=== PATIENT | male | born 1950 | race Caucasian/White ===

== ENCOUNTER 2017-02-10 12:03 | Observation (INO) | payer OTHER ==
--- NOTE | 2017-02-10 12:25 | CPEKG ---
Heart Rate: 63 RR Interval: 952 P-R Interval: 140 QRSD Interval: 82 QT Interval: 400 QTC Interval: 410 P Mobile: 66 QRS Mobile: 34 T Wave Mobile: 36 EKG Severity - NORMAL ECG - EKG Impression: SINUS RHYTHM Electronically Signed By: Melvin Gonzalez 10-Feb-2017 15:37:49
--- NOTE | 2017-02-10 12:25 | EDPHY ---
H & P Time Seen by Provider: 02/10/17 12:24 HPI/ROS: Chief complaint. Chest pain HPI. 66-year-old male presents emergency department with sharp right-sided chest discomfort that began suddenly at about 10:15 this morning. He and his have just returned from a hike. He felt well during the hike during the hike that they normally do. He has a significant history of GERD but this feels different. He describes as sharp without radiation. Slight shortness of breath. Symptoms are worse with walking. No fever cough. No unusual leg pain or swelling. He does have a history of previous PE after knee surgery. There is also family history of coronary artery disease in his father. The patient had an angiogram of coronary arteries 10 years ago which did shows some plaque ROS Constitutional. no fever/chills, no weakness Eyes. no problems with vision ENT. no sore throat, no nasal drainage Cardiovascular. Sharp right-sided chest pain Respiratory. Slight shortness of breath Abdominal. no abdominal pain, no nausea/vomiting, no diarrhea . no problems urinating MS. no calf pain/swelling, no neck/back pain, no joint pain Skin. no rash Lymph. no swollen glands Neuro. no headache, no dizziness, no difficulty walking or with speech Past Medical/Surgical History: Non-Hodgkin's lymphoma in remission, asthma, GERD, hypertension, diabetes, gout , hypothyroid Social History: , nonsmoker, no alcohol Smoking Status: Former smoker Physical Exam: General Appearance: Alert pleasant well-developed male mild distress vital signs are stable Eyes: Pupils equal and round no pallor or injection. ENT, Mouth: Mucous membranes are moist. Respiratory: There are no retractions, lungs are clear to auscultation. Cardiovascular: Regular rate and rhythm. Gastrointestinal: Abdomen is soft and nontender, no masses, bowel sounds normal. Neurological: Awake and alert, sensory and motor exams grossly normal. Skin: Warm and dry, no rashes. Musculoskeletal: Neck is supple nontender. Extremities symmetrical, full range of motion. Psychiatric: Patient is oriented X 3, there is no agitation. Constitutional: Initial Vital Signs Temperature (C) 36.4 C 02/10/17 12:05 Heart Rate 71 02/10/17 12:05 Respiratory Rate 16 02/10/17 12:05 Blood Pressure 147/88 H 02/10/17 12:05 O2 Sat (%) 96 02/10/17 12:05 O2 Delivery Mode Room Air Allergies/Adverse Reactions: Penicillins Allergy (Unknown, Verified 02/10/17 12:08) Home Medications: Medication Instructions Recorded Allopurinol [Allopurinol 300 MG 300 mg PO DAILY 02/10/17 (RX)] Aspirin EC [Aspirin EC 81 mg (*)] 81 mg PO DAILY 02/10/17 Fluticasone Nasal [Flonase Nasal 2 sprays NASAL DAILY PRN 02/10/17 [place] (RX)] Folic Acid [Folic Acid 1 MG (*)] 1 mg PO DAILY 02/10/17 Lisinopril [Zestril 20 mg (*)] 20 mg PO DAILY 02/10/17 Metformin HCl [Metformin 1000 mg] 1,000 mg PO DAILY 02/10/17 Multivitamins [Multivitamin (*)] 1 each PO DAILY 02/10/17 Pantoprazole Sodium [Protonix 40mg 40 mg PO DAILY 02/10/17 (*)] Pravastatin Sodium [Pravachol] 40 mg PO HS 02/10/17 Ranitidine HCl 300 mg PO HS 02/10/17 Medical Decision Making - Diagnostics EKG Interpretation: EKG interpreted by me shows normal sinus rhythm normal interval and axis. QRS is normal there is no significant ST elevation or depression. No arrhythmia. The rate is 63 Imaging Results: Imaging Impressions Chest/Thorax CTA 02/10/17 12:50 Impression: 1. No evidence of thrombopulmonary embolic disease. 2. Mild airways disease. Otherwise clear lungs. 3. No lymphadenopathy or mass. Findings discussed with Emergency Department physician, Dr. Melvin Gonzalez on February 10, [address] angiogram of chest shows no evidence for pulmonary embolus Procedures: IV normal saline, monitor ED Course/Re-evaluation: Re-evaluation 1:35 p.m.--patient continues to have right-sided chest discomfort. Patient, his , and I discussed laboratory evaluation imaging studies EKG findings. We discussed treatment plan including recommendation for admission. They expressed understanding and agreement I consulted discussed the case with patient's physician at [facility] who agrees to have the patient stay here. I have consulted and discussed case with Dr. Vera, hospitalist, who agrees to the admission Differential Diagnosis: Atypical right-sided chest discomfort. I considered pulmonary embolus as well as aortic dissection. I have considered acute coronary syndrome. - Data Points Laboratory Results: Laboratory Results 02/10/17 12:30 02/10/17 12:30 02/10/17 02/10/17 02/10/17 12:30 12:30 12:30 WBC 7.39 10^3/uL 10^3/uL (3.80-9.50) RBC 5.10 10^6/uL 10^6/uL (4.40-6.38) Hgb 16.2 g/dL g/dL (13.7-17.5) Hct 46.3 % % (40.0-51.0) MCV 90.8 fL fL (81.5-99.8) MCH 31.8 pg pg (27.9-34.1) MCHC 35.0 g/dL g/dL (32.4-36.7) RDW 12.7 % % (11.5-15.2) Plt Count 194 10^3/uL 10^3/uL (150-400) MPV 10.1 fL fL (8.7-11.7) Neut % (Auto) 66.8 % % (39.3-74.2) Lymph % (Auto) 22.3 % % (15.0-45.0) [place] % (Auto) 8.3 % % (4.5-13.0) Eos % (Auto) 1.4 % % (0.6-7.6) Baso % (Auto) 0.8 % % (0.3-1.7) Nucleat RBC Rel Count 0.0 % % (0.0-0.2) Absolute Neuts (auto) 4.94 10^3/uL 10^3/uL (1.70-6.50) Absolute Lymphs (auto) 1.65 10^3/uL 10^3/uL (1.00-3.00) Absolute Monos (auto) 0.61 10^3/uL 10^3/uL (0.30-0.80) Absolute Eos (auto) 0.10 10^3/uL 10^3/uL (0.03-0.40) Absolute Basos (auto) 0.06 10^3/uL 10^3/uL (0.02-0.10) Absolute Nucleated RBC 0.00 10^3/uL 10^3/uL (0-0.01) Immature Gran % 0.4 % % (0.0-1.1) Immature Gran # 0.03 10^3/uL 10^3/uL (0.00-0.10) PT 13.3 SEC SEC (12.0-15.0) INR 1.02 (0.83-1.16) D-Dimer 0.40 ug/mLFEU ug/mLFEU (0.00-0.50) Sodium 137 mEq/L mEq/L (134-144) Potassium 4.7 mEq/L mEq/L (3.5-5.2) Chloride 104 mEq/L mEq/L (97-110) Carbon Dioxide 23 mEq/l mEq/l (22-31) Anion Gap 10 mEq/L mEq/L (8-16) BUN 20 mg/dL mg/dL (7-23) Creatinine 1.0 mg/dL mg/dL (0.7-1.3) Estimated GFR > 60 Glucose 119 mg/dL H mg/dL (70-100) Calcium 9.5 mg/dL mg/dL (8.5-10.4) Troponin I < 0.012 ng/mL ng/mL (0-0.034) Medications Given: Discontinued Medications Aspirin (Aspirin) 324 mg PO EDNOW ONE Stop: 02/10/17 13:59 Last Admin: 02/10/17 14:16 Dose: 324 mg Sodium Chloride (Ns) 1,000 mls @ 0 mls/hr IV ONCE ONE PRN Reason: Wide Open Stop: 02/10/17 12:51 Last Admin: 02/10/17 13:00 Dose: 1,000 mls Departure - [facility] Impression: Chest pain Qualifiers: Chest pain type: unspecified Qualified Code(s): R07.9 - Chest pain, unspecified Condition: Good
[2017-02-10] MEDS ORDERED: NS 1,000 ML IV ONE (12:50)
[2017-02-10 12:54] LABS: % IMMATURE GRANULYOCYTES 0.4 % (0.0-1.1); ABSOLUTE IMMATURE GRANULOCYTES 0.03 10^3/uL (0.00-0.10); ADD DIFF? NO; ADD MORPH? NO; ADD SCAN? NO; ATYPICAL LYMPHOCYTE FLAG 0 (0-99); FRAGMENT RBC FLAG 0 (0-99); HEMATOCRIT 46.3 % (40.0-51.0); HEMOGLOBIN 16.2 g/dL (13.7-17.5); LEFT SHIFT FLG 0 (0-99); LIPEMIA HEMOLYSIS FLAG 90 (0-99); MEAN CELL HEMOGLOBIN 31.8 pg (27.9-34.1); MEAN CELL VOLUME 90.8 fL (81.5-99.8); MEAN PLATELET VOLUME 10.1 fL (8.7-11.7); PLATELET CLUMPS FLAG 0 (0-99); PLATELET COUNT 194 10^3/uL (150-400); RED CELL DISTRIBUTION WIDTH 12.7 % (11.5-15.2)
[2017-02-10 13:00] LABS: ANION GAP 10 mEq/L (8-16); CALCIUM 9.5 mg/dL (8.5-10.4); CARBON DIOXIDE 23 mEq/l (22-31); CHLORIDE 104 mEq/L (97-110); GLOMERULAR FILTRATION RATE > 60; GLUCOSE 119 mg/dL (70-100); POTASSIUM 4.7 mEq/L (3.5-5.2); SODIUM 137 mEq/L (134-144)
[2017-02-10] MEDS ORDERED: IOPAMIDOL (ISOVUE 370) 100 ML BTL IV ONE (13:02)
[2017-02-10 13:07] LABS: INR 1.02 (0.83-1.16); PROTIME(PATIENT) 13.3 SEC (12.0-15.0)
[2017-02-10 13:12] LABS: TROPONIN I < 0.012 ng/mL (0-0.034)
[2017-02-10] MEDS ORDERED: ASPIRIN 81 MG CHEWABLE TAB PO ONE (13:58)
[2017-02-10] MEDS ORDERED: ONDANSETRON DISINTEGRATING 4 MG TAB PO PRN (15:44)
[2017-02-10] MEDS ORDERED: ACETAMINOPHEN 325 MG TAB PO PRN (15:44)
[2017-02-10] MEDS ORDERED: FLUTICASONE NASAL 120 SPRAYS/16 GM MDI EACHNARE PRN (15:45)
--- NOTE | 2017-02-10 15:49 | PDGENHP ---
History and Physical - Chief Complaint Chest pain - History of Present Illness This 66-year-old male with reported non flow limiting coronary artery disease by cardiac catheterization done by Dr. Bradshaw about 15 years ago presents to the emergency department today with right-sided chest pain. The pain is described as a 5/10 localized sharp throbbing pain. The pain began at 10:15 a.m. this morning after finishing a hike around [place]. Since the onset of the pain and has been rather constant. He denies any alleviating factors. The pain is not worsened with palpation over his chest. He denies previous episodes like this. History Information - Allergies/Home Medication List Allergies/Adverse Reactions: Penicillins Allergy (Unknown, Verified 02/10/17 12:08) Home Medications: Allopurinol [Allopurinol 300 MG (RX)] 300 mg PO DAILY 02/10/17 [Last Taken 02/10] Aspirin EC [Aspirin EC 81 mg (*)] 81 mg PO DAILY 02/10/17 [Last Taken 02/10/17] Fluticasone Nasal [Flonase Nasal [place] (RX)] 2 sprays NASAL DAILY PRN 02/10/17 [ Last Taken Unknown] Folic Acid [Folic Acid 1 MG (*)] 1 mg PO DAILY 02/10/17 [Last Taken 02/10/17] Lisinopril [Zestril 20 mg (*)] 20 mg PO DAILY 02/10/17 [Last Taken 02/10/17] Metformin HCl [Metformin 1000 mg] 1,000 mg PO DAILY 02/10/17 [Last Taken ] Multivitamins [Multivitamin (*)] 1 each PO DAILY 02/10/17 [Last Taken 02/10/17] Pantoprazole Sodium [Protonix 40mg (*)] 40 mg PO DAILY 02/10/17 [Last Taken ] Pravastatin Sodium [Pravachol] 40 mg PO HS 02/10/17 [Last Taken 02/09/17] Ranitidine HCl 300 mg PO HS 02/10/17 [Last Taken 02/09/17] I have personally reviewed and updated: family history, medical history, social history, surgical history Past Medical History: 1. GERD. 2. Diabetes mellitus type 2 well controlled. 3. Non-Hodgkin's lymphoma. 4. Dyslipidemia - Surgical History Additional surgical history: Left total knee arthroplasty, cardiac catheterization 15 years ago - Family History Positive for: CAD (Father underwent CABG in his 70s) - Social History Smoking Status: Former smoker Alcohol Use: Occasionally Drug Use: None Review of Systems ROS: 10pt was reviewed & negative except for what was stated in HPI & below Physical Exam Temp Pulse Resp BP Pulse Ox 36.5 C 58 L 16 142/81 H 97 02/10/17 15:31 02/10/17 15:31 02/10/17 15:31 02/10/17 15:31 02/10/17 15:31 O2 (L/minute) 2 Constitutional: no apparent distress, appears nourished, not in pain Eyes: PERRL, anicteric sclera, EOMI Ears, Nose, Mouth, Throat: moist mucous membranes, hearing normal, ears appear normal, no oral mucosal ulcers Cardiovascular: regular rate and rhythym, no murmur, rub, or gallop, other (No tenderness to palpation over the sternum or costal sternal junction), No edema Respiratory: no respiratory distress, no rales or rhonchi, clear to auscultation , No rhonchi Gastrointestinal: normoactive bowel sounds, soft, non-tender abdomen, no palpable masses, No guarding, No rebound Genitourinary: no bladder fullness, no bladder tenderness Skin: warm, normal color, no rashes or abrasions, no fluctuance, no induration, No mottled Musculoskeletal: full muscle strength, no muscle tenderness, normal joint ROM, no joint effusions Neurologic: AAOx3, CN II-XII Intact, No facial droop Psychiatric: interacting appropriately, not anxious, not encephalopathic, thought process linear Lab Data & Imaging Review 02/10/17 12:30 02/10/17 12:30 WBC 7.39 10^3/uL (3.80-9.50) 02/10/17 12:30 RBC 5.10 10^6/uL (4.40-6.38) 02/10/17 12:30 Hgb 16.2 g/dL (13.7-17.5) 02/10/17 12:30 Hct 46.3 % (40.0-51.0) 02/10/17 12:30 MCV 90.8 fL (81.5-99.8) 02/10/17 12:30 MCH 31.8 pg (27.9-34.1) 02/10/17 12:30 MCHC 35.0 g/dL (32.4-36.7) 02/10/17 12:30 RDW 12.7 % (11.5-15.2) 02/10/17 12:30 Plt Count 194 10^3/uL (150-400) 02/10/17 12:30 MPV 10.1 fL (8.7-11.7) 02/10/17 12:30 Neut % (Auto) 66.8 % (39.3-74.2) 02/10/17 12:30 Lymph % (Auto) 22.3 % (15.0-45.0) 02/10/17 12:30 [place] % (Auto) 8.3 % (4.5-13.0) 02/10/17 12:30 Eos % (Auto) 1.4 % (0.6-7.6) 02/10/17 12:30 Baso % (Auto) 0.8 % (0.3-1.7) 02/10/17 12:30 Nucleat RBC Rel Count 0.0 % (0.0-0.2) 02/10/17 12:30 Absolute Neuts (auto) 4.94 10^3/uL (1.70-6.50) 02/10/17 12:30 Absolute Lymphs (auto) 1.65 10^3/uL (1.00-3.00) 02/10/17 12:30 Absolute Monos (auto) 0.61 10^3/uL (0.30-0.80) 02/10/17 12:30 Absolute Eos (auto) 0.10 10^3/uL (0.03-0.40) 02/10/17 12:30 Absolute Basos (auto) 0.06 10^3/uL (0.02-0.10) 02/10/17 12:30 Absolute Nucleated RBC 0.00 10^3/uL (0-0.01) 02/10/17 12:30 Immature Gran % 0.4 % (0.0-1.1) 02/10/17 12:30 Immature Gran # 0.03 10^3/uL (0.00-0.10) 02/10/17 12:30 PT 13.3 SEC (12.0-15.0) 02/10/17 12:30 INR 1.02 (0.83-1.16) 02/10/17 12:30 D-Dimer 0.40 ug/mLFEU (0.00-0.50) 02/10/17 12:30 Sodium 137 mEq/L (134-144) 02/10/17 12:30 Potassium 4.7 mEq/L (3.5-5.2) 02/10/17 12:30 Chloride 104 mEq/L (97-110) 02/10/17 12:30 Carbon Dioxide 23 mEq/l (22-31) 02/10/17 12:30 Anion Gap 10 mEq/L (8-16) 02/10/17 12:30 BUN 20 mg/dL (7-23) 02/10/17 12:30 Creatinine 1.0 mg/dL (0.7-1.3) 02/10/17 12:30 Estimated GFR > 60 02/10/17 12:30 Glucose 119 mg/dL (70-100) H 02/10/17 12:30 Calcium 9.5 mg/dL (8.5-10.4) 02/10/17 12:30 Troponin I < 0.012 ng/mL (0-0.034) 02/10/17 12:30 Imaging Review: CT of the chest was ordered by Dr. Gonzalez the report was reviewed Impression: 1. No evidence of thrombopulmonary embolic disease. 2. Mild airways disease. Otherwise clear lungs. 3. No lymphadenopathy or mass. Visualized and Interpreted EKG results: Yes EKG Interpretation: Positive for: normal sinsus rhythm (Rate 63 beats per minute ). Negative for: ST elevation, ST depression Assessment & Plan Assessment: This is a 66-year-old male with known coronary disease, diabetes, and dyslipidemia presenting with: # right-sided chest pain which sounds atypical for ACS or angina. I suspect the pain is musculoskeletal in etiology. However, given the patient's known coronary artery disease and risk factors he will be placed in observation where we will cycle his troponins and plan for a treadmill stress test in the morning. # diabetes mellitus 2 (controlled) -hold metformin given his recent chest CT Disposition: The patient will be placed in observation. Anticipated hospital stay is less than 24 hours.
--- NOTE | 2017-02-10 15:55 | CPEKG ---
Heart Rate: 55 RR Interval: 1091 P-R Interval: 148 QRSD Interval: 80 QT Interval: 424 QTC Interval: 406 P [place]: 61 QRS [place]: 29 T Wave [place]: 38 EKG Severity - NORMAL ECG - EKG Impression: SINUS RHYTHM Electronically Signed By: Dilip Medrano 13-Feb-2017 12:15:31
[2017-02-10] MEDS: HYOSCYAMINE SULFATE 0.125 MG TAB PO ONE ×2 (16:48→16:49)
[2017-02-10] MEDS ORDERED: LIDOCAINE 2% VISCOUS 15 ML UDCUP PO ONE (17:00)
[2017-02-10] MEDS ORDERED: MAG HYDROX/AL HYDROX/SIMETH 30 ML UDCUP PO ONE (17:00)
[2017-02-10] MEDS ORDERED: FAMOTIDINE 20 MG TAB PO SCH (21:00)
[2017-02-10] MEDS ORDERED: PRAVASTATIN SODIUM 40 MG TAB PO SCH (21:00)
[2017-02-11] MEDS ORDERED: ALLOPURINOL 300 MG TAB PO SCH (09:00)
[2017-02-11] MEDS ORDERED: MULTIVITAMINS 1 EACH TAB PO SCH (09:00)
[2017-02-11] MEDS ORDERED: FOLIC ACID 1 MG TAB PO SCH (09:00)
[2017-02-11] MEDS ORDERED: LISINOPRIL 20 MG TAB PO SCH (09:00)
[2017-02-11] MEDS ORDERED: ASPIRIN EC 81 MG TAB PO SCH (09:00)
[2017-02-11] MEDS ORDERED: PANTOPRAZOLE SODIUM 40 MG TAB PO SCH (09:00)
--- NOTE | 2017-02-11 11:08 | PDCARST ---
CAR Stress Test Results Type of Stress Test: TM stress test Indication: cp Description of Procedure: After informed consent was obtained, pt was exercised according to Ron Protocol. Monitoring was performed with standard stress test evaluator electrode placement. Vital signs were monitored according to protocol throughout the procedure. STRESS EKG AND HEMODYNAMIC DATA. Exercise time: 7: 30 min. This is equivalent to: 8.6 METS. Resting heart rate: 55 bpm. Resting blood pressure: 120/80 mmHg. Resting O2 saturation: 99%. Peak heart rate: 150 bpm. This is 97 % of age predicted maximum heart rate response. Peak blood pressure: 170/80 mmHg. Exercise O2: 95 %. Arrhythmias : Rare PVCs at baseline and in recovery. Reason for termination: The test was stopped due to maximal effort and cp. Symptoms: The patient experienced symptoms suggestive of angina during stress or recovery. STRESS TEST ANALYSIS. Baseline ECG: SR. Stress ECG: SR. exercise induced ischemic ECG changes: 1 mm horizontal STD. Rhythm: rare ventricular arrhythmias. Blood pressure: Normal blood pressure response to exercise. Exercise tolerance: The patient has normal exercise tolerance adjusted for age and gender. Symptoms: exercise induced symptoms. Impression: Stress ECG is worrisome for ischemia. The Jimenez Treadmill Score is - 2 consistent with intermediate cardiovascular risk. Conclusion: Dr. Duke will consult with patient.
--- NOTE | 2017-02-11 13:37 | GCON ---
[f rep st] CONSULTATION CARDIOVASCULAR CONSULTATION. HISTORY OF PRESENT ILLNESS: This is a very active gentleman, who was out exercising yesterday. He did half of his normal walk, which was about 45 minutes long. Usually he would walk for much longer than that. He had no trouble walking. He felt good on his walk, but when he got back he developed a sharp right-sided sternal area chest pain that was 5 to 6/10. Very specific in that it was very sharp, it was not pressure, heaviness, tightness. It did not radiate. He has had no pleuritic chest pain. No cough, fever or chills. He was a little bit nauseated for a few moments, but that passed quickly. He had no shortness of breath or sweatiness associated with it. No associated palpitations. No associated fatigue or feeling exhausted. He has not been having any nausea, except as noted. He has not had any vomiting or . He has not had fever, chills or cough. He has not had rigors. He has not had lightheadedness, dizziness, near syncope, syncope. He has no palpitations. He does not have hot, swollen joints or major arthralgias. He has no palpitations. He has not had shortness of breath. Hemoptysis. His appetite is good. He has not been losing weight or having other problems. PAST MEDICAL HISTORY: Includes very severe acid reflux pain. He calls this very, very serious. He has GERD and it happens every day. His GERD pain, however, is quite different, it is indigestion on the lower right side of the chest and does not feel like the sharp pain that he was admitted to this hospital for. History of pulmonary embolism. Knee replacement. CARDIAC RISK FACTORS: Positive for hypertension, diabetes, hyperlipidemia, hyperuricemia. Cardiac risk factors negative for family history of premature coronary artery disease, smoking, known coronary artery disease. REVIEW OF SYSTEMS: A 12-point review of systems negative, except as noted. He has a history of non-Hodgkin's lymphoma, and for that problem he had a lymph node removed under his jaw, and he has had no other treatment for that problem. Knee replacement. He has longstanding Saavedra's esophagitis. He takes his medications for his gastroesophageal reflux disease. He follows with [facility]. ALLERGIES: Penicillin. MEDICATIONS AT HOME: Include allopurinol, aspirin, Flonase, folic acid, Zestril , metformin, multivitamins, Protonix, protocol and ranitidine. FAMILY HISTORY: His family has no history of early sudden . His family has no history of coronary artery disease at a young age. SOCIAL HISTORY: He was born in [place]. He works as an manager background for years, at this time he lives in [facility], and he works as a preschool assistant. He has been in [place] for many years. PHYSICAL EXAMINATION: VITAL SIGNS: His blood pressure is 135/80, respiratory rate is 12. Pulse is 65. HEENT: Pupils equal, round and reactive to light. PULMONARY: Rhonchi bilaterally. No rales, wheezing, or dullness. NECK: Supple. CARDIOVASCULAR: S1, S2, soft systolic murmur left sternal border. No diastolic murmur. No S3, S4. No rub. ABDOMEN: Soft, nontender, without masses. CVA: No tenderness. SKIN: Age-related changes. PSYCH: No obvious anxiety or depression. NEURO: Cranial nerves 2-12 grossly normal. Motor and sensory intact. LABS: Troponins are negative x3. Sodium 137, potassium 4.7, chloride 104, CO2 23, BUN 20, creatinine 1.0. White count 7.39, hematocrit 46.3. The EKG shows nonspecific ST-T changes, has normal sinus rhythm. [place] is normal. Troponins were negative. The patient had a regular stress test, and at peak exercise, he developed chest discomfort and minimal horizontal ST-segment depression. ASSESSMENT AND PLAN: 1. Chest pain. 2. Gastroesophageal reflux disease. 3. Saavedra's esophagitis. 4. Nausea. 5. Hypertension. 6. Diabetes mellitus. 7. Hyperlipidemia. 8. Hyperuricemia. I have examined and discussed this with the patient. I have talked to do different doctors at [facility]. I also talked to the hospitalist and the nursing staff. The patient has chest pain syndrome, which is atypical, however, he got the pain at peak exercise on his treadmill and his treadmill had nonspecific changes , but it could possibly be considered consistent with ischemia. I would recommend that he stay for a nuclear stress test for coronary angiogram , and I gave him both options, and he would prefer to go with the nuclear noninvasive test right now. So we are setting up a nuclear imaging study to look for coronary artery disease. I have talked to [facility] and their arrangement was it was fine for him to stay here as long as it took to get a nuclear study, whether it is today or tomorrow, it did not matter to them. He has many major risk factors for coronary artery disease, including hypertension, diabetes, hyperlipidemia, hyperuricemia, and he needs to be very carefully evaluated for coronary artery disease with this history of pain. In terms of the differential diagnosis for his pain, there is nothing to suggest disease of the great vessels. His pulses are full and equal. There is nothing to suggest pulmonary embolic disease. The patient is not having any problems that goes along pulmonary embolic disease. He has had a pulmonary embolism before, I will order a D-dimer, but there is nothing to suggest in this case that he has pulmonary embolic disease causing his current problems. He may well have occult coronary artery disease and we need to check that out very carefully. There is nothing to suggest major GI or pulmonary pathology right now. He is exercising, doing a very good job of that, and is not having any new troubles. All his questions have been answered. We will follow him very closely. /[id number]/MODL MTDD
[2017-02-11] MEDS ORDERED: REGADENOSON 0.4 MG/5 ML SYR IVP ONE (14:14)
--- NOTE | 2017-02-11 15:12 | CPR ---
[f rep st] NONINVASIVE CARDIAC PROCEDURE REPORT DATE OF PROCEDURE: 02/11/2017 PROCEDURE PERFORMED: Lexiscan nuclear stress test. REASON FOR TEST: Chest pain. FINDINGS: Resting EKG shows a sinus rhythm with a rate of 53. No ischemic changes are noted. He h ad faint chest discomfort at the start of the test. His blood pressure 112/64, oxygen saturation 98 %. PROCEDURE IN DETAIL: Lexiscan was injected rapidly followed by saline flush. Cardiolite was then i njected followed by a saline flush. Blood pressure 120/80, heart rate max 98, oxygen saturation 92% . There were no EKG changes. He did feel flushed followed by chest discomfort. He declined caffei ne. His discomfort did subside prior to discontinuing the test. RECOVERY: He spontaneously recovered. There were no EKG changes. Resting blood pressure 120/80, r esting heart rate 87, oxygen saturation 98%. DISPOSITION: At this time, he is pain-free and stable for nuclear imaging. /[id number]/MODL
[2017-02-11 16:41] VITALS: O2SAT 96
[2017-02-11 17:28] VITALS: BP 143/87; PULSE 70; RESP 14; TEMP 97.2
--- NOTE | 2017-02-12 09:46 | GDS ---
[f rep st] DISCHARGE SUMMARY DISCHARGE DIAGNOSIS: History of nonocclusive coronary artery disease based on angiogram performed 1 5 years ago. CONSULTANTS: Dr. Pasquale Duke, Cardiology. IMAGING STUDIES/PROCEDURES: 1. CT pulmonary angiogram, February 10, 2017, was negative for pulmonary embolism. Showed mild airways disease otherwise clear lungs. No lymphadenopathy or masses. 2. A treadmill stress test performed February 10, 2017, was worrisome for ischemia given a Jimenez treadmil l score of -2 consistent with intermediate cardiovascular risk. 3. Nuclear medicine myocardial perfusion scan February 11, 2017, showed normal left ventricular ejection fraction. A small fixed region of inferior hypoperfusion which may be artifact versus prior infarc t. There was no evidence of reversible ischemia and no focal wall motion abnormalities. HISTORY: For details, please see the history and physical dated February 10, 2015. In brief, the patien leia is a 66-year-old male with a history of previously diagnosed nonocclusive coronary artery disease diagnosed by Dr. Bradshaw on prior angiogram 15 years ago, presents to the emergency department with c hest pain. He was admitted to the hospital for further evaluation. HOSPITAL COURSE: The patient was admitted to the observation unit. His chest pain was atypical and did not sound consistent with acute coronary syndrome. However, given his risk factors, including diabetes, hypertension, and hyperlipidemia, further evaluation was performed. He had 2 negative tro ponins. D-dimer was negative. His EKG was nonischemic. He underwent exercise treadmill stress luba t the morning after admission, and during this test, he experienced symptoms suggestive of angina wi th [address] depression, which is overall worrisome for possible ischemia. Cardiology cons ultation was obtained, and the patient underwent a nuclear medicine myocardial perfusion scan. I re viewed the results of this test with our motion picture film examiner, Dr. Pasquale Duke, who felt patient was stable for discharge home. There was no evidence of reversible ischemia. No wall motion abnormalities. The patient was chest pain-free at the time of discharge, and upon further discussion, he feels this is most likely related to acid reflux. He does already take PPI and an H2 evelyne. I recommend he follow up with his primary care physician for consideration of referral to [facility] at [facility] as he may warrant an upper endoscopy for further evaluation. DISPOSITION: Patient is discharged home in stable condition. DISCHARGE MEDICATIONS: Please see [facility] for complete updated outpatient medication list. There are new medications at discharge. FOLLOWUP: Patient is to follow up with his primary care physician, Dr. Melvin Turner. I have also advised him to follow up with Cardiology at [facility]. /[id number]
[2017-02-12] MEDS ORDERED: metFORMIN HCL 500 MG TAB PO SCH (14:00)
== END 2017-02-11 17:29 | disposition home or self-care (01) ==
LOC: F1N 15:13
PROVIDERS: ADMIT Family Medicine; ATTEND Family Medicine
DX: I25.10 Atherosclerotic heart disease of native coronary artery without angina pectoris (principal); K21.9 Gastro-esophageal reflux disease without esophagitis; E11.9 Type 2 diabetes mellitus without complications; I10 Essential (primary) hypertension; E78.5 Hyperlipidemia, unspecified; Z87.891 Personal history of nicotine dependence; Z79.84 Long term (current) use of oral hypoglycemic drugs
CPT/HCPCS: 71275; 78452; 93005; 93017; A9500; G0378; J2785; Q9967